=== PATIENT | female | born 1995 | race Caucasian/White ===

== ENCOUNTER 2021-05-12 10:04 | Inpatient (IN) | payer OTHER ==
[2021-05-12] MEDS ORDERED: BETAMET ACET/BETAMET NA PH 30 MG/5 ML VIAL IM ONE (10:54)
[2021-05-12] MEDS ORDERED: AMPICILLIN - 2 GM in SODIUM CHLORIDE 100 ML IVPB ONE (10:56)
[2021-05-12] MEDS ORDERED: ELECTROLYTE-148 SOLN 1,000 ML IV SCH (11:00)
[2021-05-12] MEDS ORDERED: NIFEdipine 10 MG CAPSULE (FP) ONE (11:12)
[2021-05-12 11:36] VITALS: BMI 28.0
[2021-05-12 11:45] LABS: BASO % 0.3 % (0-2.0); EOS % 0.1 % (0-4.5); HEMOGLOBIN 12.1 GM/dL (10.7-15.3); LYMPH % 14.6 % (8-40); MCH 27.9 pg (25.7-33.7); MCHC 33.5 g/dl (32.0-36.0); MEAN CELL VOLUME 83.4 fl (80-96); MEAN PLT VOLUME 9.1 fl (7.5-11.1); MONO % 4.6 % (3.8-10.2); NEUT % 80.4 % (42.8-82.8); PLATELET COUNT 266 10^3/uL (134-434); RBC 4.32 M/mm3 (3.60-5.2); RDW 14.7 % (11.6-15.6); WHITE BLOOD COUNT 13.3 K/mm3 (4.0-10.0)
[2021-05-12 11:47] LABS: PROTHROMBIN TIME (PATIENT) 11.5 SEC (9.7-13.0)
[2021-05-12 11:50] LABS: ACTIVATED PTT 25.7 SECONDS (25.2-36.5)
[2021-05-12 12:07] VITALS: BP 126/76; PULSE 120; TEMP 98.3
[2021-05-12 12:09] LABS: CALCIUM 9.4 mg/dL (8.5-10.1)
[2021-05-12 12:10] LABS: BLOOD UREA NITROGEN 5.4 mg/dL (7-18)
[2021-05-12 12:14] LABS: CREATININE 0.5 mg/dL (0.55-1.3)
[2021-05-12] MEDS ORDERED: NIFEdipine 10 MG CAPSULE (FP) PO ONE (12:15)
== END 2021-05-12 12:40 | disposition short-term general hospital (02) | DRG 566 ==
LOC: JLDR 10:04
PROVIDERS: ADMIT Internal Medicine; ATTEND Internal Medicine
DX: O42.913 Preterm premature rupture of membranes, unspecified as to length of time between rupture and onset of labor, third trimester (principal); O60.03 Preterm labor without delivery, third trimester; Z3A.33 33 weeks gestation of pregnancy
CPT/HCPCS: 36415; 80048; 85025; 85610; 85730; 86780; 86850; 86900; 86901; 96372; C9803; U0003; U0005

== ENCOUNTER 2023-08-04 03:45 | Inpatient (IN) | payer OTHER ==
[2023-08-04] MEDS: DEXTROSE 5%-LACTATED RINGERS 1,000 ML IV SCH (04:00)
[2023-08-04] MEDS ORDERED: AMPICILLIN SODIUM 2 GM VIAL ONE (04:25)
[2023-08-04] MEDS ORDERED: BETAMET ACET/BETAMET NA PH 30 MG/5 ML VIAL ONE (04:26)
[2023-08-04] MEDS: ELECTROLYTE-148 SOLN 1,000 ML IV SCH (04:30)
[2023-08-04] MEDS: AMPICILLIN - 2 GM in SODIUM CHLORIDE 100 ML IVPB ONE (04:30)
[2023-08-04] MEDS: BETAMET ACET/BETAMET NA PH 30 MG/5 ML VIAL IM ONE (04:30)
[2023-08-04] MEDS ORDERED: AMPICILLIN - 2 GM in SODIUM CHLORIDE 100 ML IVPB ONE (04:32)
[2023-08-04 04:40] LABS: BASO % 0.2 % (0-2.0); EOS % 0.7 % (0-4.5); HEMATOCRIT 35.8 % (32.4-45.2); HEMOGLOBIN 11.9 GM/dL (10.7-15.3); LYMPH % 25.3 % (8-40); MCH 27.2 pg (25.7-33.7); MCHC 33.2 g/dl (32.0-36.0); MEAN CELL VOLUME 81.9 fl (80-96); MEAN PLT VOLUME 9.3 fl (7.5-11.1); MONO % 5.4 % (3.8-10.2); NEUT % 68.4 % (42.8-82.8); PLATELET COUNT 252 10^3/uL (134-434); RBC 4.37 M/mm3 (3.60-5.2); RDW 15.6 % (11.6-15.6); WHITE BLOOD COUNT 12.4 K/mm3 (4.0-10.0)
[2023-08-04 04:59] LABS: PROTHROMBIN TIME (PATIENT) 11.6 SEC (9.7-13.0)
[2023-08-04 05:00] LABS: POTASSIUM 3.9 mmol/L (3.5-5.1)
[2023-08-04 05:01] LABS: ACTIVATED PTT 26.1 SECONDS (25.2-36.5); CALCIUM 9.1 mg/dL (8.5-10.1)
[2023-08-04 05:03] LABS: BLOOD UREA NITROGEN 9.1 mg/dL (7-18)
[2023-08-04 05:06] LABS: CREATININE 0.5 mg/dL (0.55-1.3)
[2023-08-04 05:08] VITALS: BMI 31.2
[2023-08-04] MEDS ORDERED: LIDOCAINE HCL 1% PRESERVATIVE FREE - 30ML VIAL ONE (05:09)
[2023-08-04] MEDS ORDERED: OXYTOCIN 20 UNITS in 0.9% NS 20 UNIT/1,000 ML INFUS.BAG IV ONE (05:09)
[2023-08-04] MEDS ORDERED: FENTANYL/BUPIVACAINE/NS/PF - PCEA - 50 ML DISP.SYRIN EP ONE (05:10)
[2023-08-04] MEDS: OXYTOCIN 20 UNITS in 0.9% NS 20 UNIT/1,000 ML INFUS.BAG IV SCH (05:25)
[2023-08-04] MEDS ORDERED: METHYLERGONOVINE MALEATE 0.2 MG/1 ML AMP IM PRN (05:35)
[2023-08-04] MEDS ORDERED: BENZOCAINE 20% 57 GM BOTTLE TP PRN (05:35)
[2023-08-04] MEDS ORDERED: BISACODYL 10 MG SUPP.RECT RC PRN (05:35)
[2023-08-04] MEDS ORDERED: WITCH HAZEL 50% (TUCKS) 40 PAD/JAR PAD TP PRN (05:35)
[2023-08-04] MEDS ORDERED: BENZOCAINE 28 GM HEMORRHOIDAL OINTMENT TP PRN (05:35)
[2023-08-04] MEDS: oxyCODONE HCL 5 MG TABLET PO PRN (05:50)
[2023-08-04 05:53] LABS: CORD BASE EXCESS -7.1 mmol/L (0-2); CORD HCO3 21.8 mmHg (20-29); CORD PCO2 57.9 mmHg (30-78); CORD pH 7.193 (7.14-7.44)
[2023-08-04 05:56] LABS: CORD BASE EXCESS -4.6 mmol/L (0-2); CORD HCO3 21.5 mmHg (20-29); CORD PCO2 43.3 mmHg (30-78); CORD pH 7.314 (7.14-7.44)
[2023-08-04 05:58] LABS: HIV INTERPRETATION NEGATIVE (NEGATIVE)
[2023-08-04 06:44] LABS: ALBUMIN 2.7 g/dl (3.4-5.0)
[2023-08-04 06:46] LABS: BILIRUBIN,DIRECT 0.1 mg/dL (0.0-0.2); URIC ACID 4.6 mg/dL (2.6-7.2)
[2023-08-04 06:49] LABS: BILIRUBIN,TOTAL 0.2 mg/dL (0.2-1); TOT PROT 6.5 g/dl (6.4-8.2)
[2023-08-04 07:03] LABS: RETICULOCYTES 1.33 % (0.5-1.5)
[2023-08-04] MEDS: IBUPROFEN 600 MG TABLET (FP) PO PRN (08:26)
[2023-08-04 08:42] VITALS: RESP 18
[2023-08-04] MEDS ORDERED: AMPICILLIN - 1 GM in SODIUM CHLORIDE 100 ML IVPB SCH (08:45)
[2023-08-04 09:54] LABS: COCAINE, UR NEGATIVE (NEGATIVE); METHADONE, UR NEGATIVE (NEGATIVE); OPIATES, URI NEGATIVE (NEGATIVE); PHENCYCLIDINE,URINE NEGATIVE (NEGATIVE); URINE AMPHETAMINES NEGATIVE (NEGATIVE); URINE BARBITURATES NEGATIVE (NEGATIVE); URINE BENZODIAZEPINES NEGATIVE (NEGATIVE)
[2023-08-04] MEDS: AMPICILLIN - 1 GM in SODIUM CHLORIDE 100 ML IVPB SCH (23:36)
[2023-08-05] MEDS: ACETAMINOPHEN 325 MG TABLET (FP) PO PRN (07:08)
[2023-08-05 07:49] LABS: BASO % 0.1 % (0-2.0); HEMATOCRIT 36.1 % (32.4-45.2); HEMOGLOBIN 11.8 GM/dL (10.7-15.3); LYMPH % 14.4 % (8-40); MCH 27.1 pg (25.7-33.7); MCHC 32.6 g/dl (32.0-36.0); MEAN CELL VOLUME 83.3 fl (80-96); MEAN PLT VOLUME 9.7 fl (7.5-11.1); MONO % 5.6 % (3.8-10.2); NEUT % 79.9 % (42.8-82.8); PLATELET COUNT 238 10^3/uL (134-434); RBC 4.34 M/mm3 (3.60-5.2); RDW 15.4 % (11.6-15.6); WHITE BLOOD COUNT 18.4 K/mm3 (4.0-10.0)
[2023-08-05] MEDS: SENNOSIDES/DOCUSATE COMBO (SENNA PLUS) TABLET (UD) PO PRN (10:15)
[2023-08-06 13:35] VITALS: BP 115/59; PULSE 96; TEMP 98.2
== END 2023-08-06 15:30 | disposition home or self-care (01) | DRG 560 ==
LOC: JLDR 03:45 → J3W 08:15
PROVIDERS: ADMIT Specialist; ATTEND Specialist
PROC: 10E0XZZ Delivery of Products of Conception, External Approach (ICD-10-PCS; principal; 2023-08-04)
DX: O60.14X0 Preterm labor third trimester with preterm delivery third trimester, not applicable or unspecified (principal); O69.81X0 Labor and delivery complicated by cord around neck, without compression, not applicable or unspecified; O69.89X0 Labor and delivery complicated by other cord complications, not applicable or unspecified; Z3A.34 34 weeks gestation of pregnancy; Z37.0 Single live birth
CPT/HCPCS: 36415; 36600; 80048; 80076; 80307; 82570; 82803; 82977; 83010; 84156; 84550; 85025; 85045; 85610; 85730; 86780; 86850; 86900; 86901; 87389; 96372